=== PATIENT | female | born 1945 | race Caucasian/White ===

== ENCOUNTER 2017-10-26 10:09 | Outpatient (CLI) | payer MEDICARE ==
[~2017-10-26] VITALS: Ht 167.6 cm; Wt 55.5 kg
[2017-10-26 11:38] VITALS: BP 101/34; Ht 167.6 cm; Wt 55.5 kg
== END 2017-10-26 11:45 | disposition home or self-care (01) ==
LOC: D.OPS 10:09
DX: M81.0 Age-related osteoporosis without current pathological fracture (principal)

== ENCOUNTER 2018-05-02 12:33 | Outpatient (CLI) | payer MEDICARE, OTHER ==
[~2018-05-02] VITALS: Ht 167.6 cm; Wt 59.1 kg
[2018-05-02 12:55] VITALS: Ht 167.6 cm; Wt 59.1 kg
== END 2018-05-02 13:07 ==
LOC: D.OPS 12:33
DX: M81.0 Age-related osteoporosis without current pathological fracture (principal); Z01.812 Encounter for preprocedural laboratory examination

== ENCOUNTER 2018-11-08 11:45 | Outpatient (CLI) | payer MEDICARE, OTHER ==
[~2018-11-08] VITALS: Ht 167.6 cm; Wt 60.5 kg
[2018-11-08 12:15] VITALS: BP 107/69; Ht 167.6 cm; Wt 60.5 kg
== END 2018-11-08 12:20 | disposition home or self-care (01) ==
LOC: D.OPS 11:45
PROVIDERS: ATTEND Nurse Practitioner Family
DX: M18.0 Bilateral primary osteoarthritis of first carpometacarpal joints (principal)

== ENCOUNTER 2019-05-30 10:43 | Outpatient (CLI) | payer MEDICARE, OTHER ==
[~2019-05-30] VITALS: Ht 170.2 cm; Wt 61.4 kg
[2019-05-30 11:10] VITALS: BP 120/46; Ht 170.2 cm; Wt 61.4 kg
--- NOTE | 2019-05-30 11:22 | NUR ---
PT LEFT UNIT AMBULATING AT 1122
== END 2019-05-30 11:22 | disposition home or self-care (01) ==
LOC: D.OPS 10:43
PROVIDERS: ATTEND Family Medicine
DX: M81.0 Age-related osteoporosis without current pathological fracture (principal)

== ENCOUNTER → 2019-07-02 11:09 | Outpatient (CLI) | payer MEDICARE, OTHER ==
[2019-05-30 11:10] VITALS: BMI 21.2
== END | disposition home or self-care (01) ==
LOC: D.RAD 11:09
PROVIDERS: ATTEND Pain Medicine Interventional Pain Medicine
DX: M48.062 Spinal stenosis, lumbar region with neurogenic claudication (principal)

== ENCOUNTER → 2020-01-25 08:59 | Outpatient (CLI) | payer MEDICARE, OTHER ==
[2019-05-30 11:10] VITALS: BMI 21.2
--- NOTE | ~2020-01-25 | EC ---
PATIENT:PETER STRANGE DATE OF SERVICE: 01/25/20 SEX: F MEDICAL RECORD: [id number] DATE OF : [birth year] LOCATION:D[facility] AGE OF PATIENT: 74 ADMISSION DATE: 01/25/20 REFERRING PHYSICIAN: INTERPRETING PHYSICIAN: AFUA DALE MD ECHOCARDIOGRAM REPORT ECHO CHARGES 4 ECHO COMPLETE Date: 01/25/20 CLINICAL DIAGNOSIS: HEART MURMUR ECHOCARDIOGRAPHIC MEASUREMENTS (adult normal given) AC root (d.<3.7cm) 2.7 cm LV Septum d (<1.2 cm> 1.0 cm Valve Excursion 1.4 cm LV Septum (systole) 1.4 cm Left Atria (s.<4.0cm> 3.2 cm LVPW d(<1.2cm) 1.2 cm RV (d.<2.3cm) 3.7 cm LVPW (sytole) 1.6 cm LV diastole(<5.6CM) 4.5 cm MV E-F(>70mm/sec) cm LV systole 2.7 cm LVOT Diameter 1.8 cm MV exc.(>10mm) 1.4 cm Est.ejection fraction (50-75%) % DOPPLER: LVIT cm/sec A 43.0 cm/sec E 53.0 cm/sec LA cm/sec RVSP 34 mmHg LVOT 112 cm/sec AOP1/2T 777 m/s Asc. Ao 147 cm/sec RVOT 85 cm/sec RA cm/sec PA 109 cm/sec AV Gradient Peak 8.63 mmHg AV Mean 3.98 mmHg AV Area 2.0 cm MV Gradient Peak 1.98 mmHg MV Mean 0.72 mmHg MV Area cm COMMENTS: Freight And Passenger Agent: 2 MYKE PRESCOTT Machine Carton Marker: 3 Dr. Hackett TAPE# PACS Pericardial Effusion N DATE OF SERVICE: Adequate 2D, color flow imaging, spectral Doppler, and M-Mode. No LVH. LV internal dimension is normal. Wall motion is normal. EF is greater than or equal to 55%. Aortic valve is tricuspid. No evidence of stenosis by Doppler interrogation. Left atrium is normal at 3.2 cm. Mitral valve shows no prolapse. Trace MR. Right-sided chambers are grossly normal. Trace TR. TRANSINT:[id number] Voice Confirmation ID: [id number] DOCUMENT ID: [id number] ECHOCARDIOGRAM REPORT [id number] PETER STRANGE GREGORY A MD CC: [id number] DICTATION DATE: 01/28/20 1147 SWIMMER: 01/28/202058 DEP CLI 01/25/20 [place] [id number]
--- NOTE | ~2020-01-25 | EC ---
PATIENT:PETER STRANGE DATE OF SERVICE: 01/25/20 SEX: F MEDICAL RECORD: [id number] DATE OF : [birth year] LOCATION:D[facility] AGE OF PATIENT: 74 ADMISSION DATE: 01/25/20 REFERRING PHYSICIAN: INTERPRETING PHYSICIAN: AFUA DALE MD ECHOCARDIOGRAM REPORT ECHO CHARGES 4 ECHO COMPLETE Date: 01/25/20 CLINICAL DIAGNOSIS: HEART MURMUR ECHOCARDIOGRAPHIC MEASUREMENTS (adult normal given) AC root (d.<3.7cm) 2.7 cm LV Septum d (<1.2 cm> 1.0 cm Valve Excursion 1.4 cm LV Septum (systole) 1.4 cm Left Atria (s.<4.0cm> 3.2 cm LVPW d(<1.2cm) 1.2 cm RV (d.<2.3cm) 3.7 cm LVPW (sytole) 1.6 cm LV diastole(<5.6CM) 4.5 cm MV E-F(>70mm/sec) cm LV systole 2.7 cm LVOT Diameter 1.8 cm MV exc.(>10mm) 1.4 cm Est.ejection fraction (50-75%) % DOPPLER: LVIT cm/sec A 43.0 cm/sec E 53.0 cm/sec LA cm/sec RVSP 34 mmHg LVOT 112 cm/sec AOP1/2T 777 m/s Asc. Ao 147 cm/sec RVOT 85 cm/sec RA cm/sec PA 109 cm/sec AV Gradient Peak 8.63 mmHg AV Mean 3.98 mmHg AV Area 2.0 cm MV Gradient Peak 1.98 mmHg MV Mean 0.72 mmHg MV Area cm COMMENTS: Place Change Roof Bolter: 2 MYKE PRESCOTT Mobile Equipment Servicer: 3 Dr. Hackett TAPE# PACS Pericardial Effusion N DATE OF SERVICE: Adequate 2D, color-flow imaging, spectral Doppler, and M-Mode. No LVH. LV internal dimension is normal. Wall motion is normal. EF is greater than or equal to 55%. Aortic valve is tricuspid. No evidence of stenosis by Doppler interrogation. Left atrium is normal at 3.4 cm. Mitral valve shows no prolapse. Trace MR. Right-sided chambers are grossly normal. Trace TR. TRANSINT:[id number] Voice Confirmation ID: [id number] DOCUMENT ID: [id number] ECHOCARDIOGRAM REPORT [id number] PETER STRANGE GREGORY A MD CC: [id number] DICTATION DATE: 01/28/20 111 JOB PRESS FEEDER: 01/28/202054 DEP CLI 01/25/20 [place] [id number] [place] [address]
== END | disposition home or self-care (01) ==
LOC: D.HCCECHO 08:59
PROVIDERS: ATTEND Internal Medicine Cardiovascular Disease
DX: I20.9 Angina pectoris, unspecified (principal); R01.1 Cardiac murmur, unspecified

== ENCOUNTER 2020-08-20 13:26 | Outpatient (CLI) | payer MEDICARE, OTHER ==
[~2020-08-20] VITALS: Ht 170.2 cm; Wt 57.7 kg
[2020-08-20 14:52] VITALS: BP 128/54; Ht 170.2 cm; Wt 57.7 kg
== END 2020-08-20 14:55 | disposition home or self-care (01) ==
LOC: D.OPS 13:26
PROVIDERS: ATTEND Legal Medicine
DX: M81.0 Age-related osteoporosis without current pathological fracture (principal)